=== PATIENT | male | born 1970 | race Caucasian/White ===

== ENCOUNTER 2016-07-22 08:50 | Emergency (ER) | payer SELFPAY ==
[~2016-07-22] VITALS: Ht 172.7 cm; Wt 84.5 kg
[2016-07-22 08:54] VITALS: Ht 172.7 cm; Wt 84.5 kg
[2016-07-22] MEDS ORDERED: SOD CHLORIDE 0.9% 1,000 ML IV STA (09:18)
[2016-07-22] MEDS ORDERED: ENALAPRILAT 1.25 MG INJ IV ONE (09:30)
--- NOTE | 2016-07-22 09:37 | RADRPT ---
PROCEDURE: XR Chest. CLINICAL INDICATION: Chest pain TECHNIQUE: Chest AP portable. COMPARISON: No comparison available. FINDINGS: The mediastinal structures are unremarkable. The heart is normal in size and configuration. The pu lmonary vascularity is normal. The lung saleem are unremarkable. No consolidation is identified. The pleural spaces are unremarkable. The axial skeleton is unremarkable. IMPRESSION: No active intrathoracic disease. RPTAT: HGDB .Luis Travis MD, MD Date Time Electronically viewed and signed by .Luis Travis MD, on 07/22/2016 09:37 .B/
[2016-07-22 10:18] LABS: BASOPHILS % 0.3 % (0.0-2.0); EOSINOPHILS # 0.1 10^3/ul (0.0-0.5); HEMATOCRIT 46.4 % (42.0-52.0); LYMPHOCYTES # 2.3 10^3/ul (0.8-2.9); LYMPHOCYTES % 29.7 % (15.0-51.0); MEAN CORPUSCULAR HEMOGLOBIN 31.3 pg (29.0-33.0); MEAN CORPUSCULAR HGB CONC 34.6 g/dl (32.0-37.0); MEAN CORPUSCULAR VOLUME 90.5 fl (82.0-101.0); MEAN PLATELET VOLUME 10.2 fl (7.4-10.4); MONOCYTE # 0.5 10^3/ul (0.3-0.9); MONOCYTES % 6.4 % (0.0-11.0); NEUTROPHIL # 4.9 10^3/ul (1.6-7.5); NEUTROPHILS % 62.6 % (39.0-77.0); PLATELET COUNT 220 10^3/UL (140-440); RED BLOOD COUNT 5.13 10^6/ul (4.70-6.10); RED CELL DISTRIBUTION WIDTH 12.6 % (11.5-14.5); UNCORRECTED WBC 7.9 10^3/ul (4.8-10.8); WHITE BLOOD COUNT 7.9 10^3/ul (4.8-10.8)
[2016-07-22 10:22] LABS: CONDITION 1
[2016-07-22 10:26] LABS: ALBUMIN 4.4 g/dl (3.3-4.9)
[2016-07-22 10:27] LABS: POTASSIUM 3.9 mmol/L (3.5-5.1)
[2016-07-22 10:29] LABS: ALBUMIN/GLOBULIN RATIO 1.25; BILIRUBIN,INDIRECT 0.3 mg/dl (0-1.1); BILIRUBIN,TOTAL 0.3 mg/dl (0.2-1.3); CREATININE 0.63 mg/dl (0.61-1.24); TOTAL PROTEIN 7.9 g/dl (6.1-8.1)
[2016-07-22 10:30] LABS: CALCIUM 9.2 mg/dl (8.4-10.2)
[2016-07-22 10:41] LABS: TROPONIN-I 0.052 ng/ml (0.00-0.12)
[2016-07-22] MEDS ORDERED: hydrALAzine 20 MG INJ IV ONE (11:00)
[2016-07-22] MEDS ORDERED: QUIN20TA16 PO (11:22)
[2016-07-22] MEDS ORDERED: HYDR50TA3 PO (11:22)
[2016-07-22] MEDS ORDERED: METF-382 PO (11:22)
[2016-07-22 12:25] VITALS: BP 152/103; PULSE 93; RESP 18; TEMP 98.2
--- NOTE | 2016-07-22 14:14 | ERD ---
ER Documentation Chief Complaint Date/Time DATE: 07/22/16 TIME: 14:07 Chief Complaint Hypertension and blurred vision since last night, off meds for 8 months HPI 46-year-old man here for evaluation of hypertension. He has a long history of hypertension and diabetes mellitus although he states he has not been using any medications for about 8 months. He states over the course of 1 year he has had gradually vision loss. He denies headache or neck pain, no weakness in his arms or legs, no slurred speech, no complaints of chest pain or shortness of breath. Patient denies recent travel or sick contacts. ROS All systems reviewed and are negative except as per history of present illness. Medications Home Meds Active Scripts Metformin Hcl* (Metformin Hcl*) 500 Mg Tablet, 500 MG PO BID, #60 TAB Prov:FROY DHILLON MD 07/22/16 Hydrochlorothiazide* (Hydrochlorothiazide*) 50 Mg Tab, 50 MG PO BID, #60 TAB Prov:FROY DHILLON MD 07/22/16 Quinapril Hcl (Accupril) 20 Mg Tablet, 20 MG PO DAILY, #30 TAB Prov:FROY DHILLON MD 07/22/16 Allergies Allergies: Coded Allergies: No Known Drug Allergies (Verified Allergy, Unknown, 07/22/16) PMhx/Soc Hypertension, diabetes mellitus Hx Cardiac Disorders: Yes (HTN) Hx Miscellaneous Medical Probl: Yes (DM, NON-COMPLIANT) Hx Alcohol Use: No Hx Substance Use: No Hx Tobacco Use: No Smoking Status: Current some day smoker FmHx Family History: diabetes Physical Exam Vitals Vital Signs Date Time Temp Pulse Resp B/P Pulse Ox O2 Delivery O2 Flow Rate FiO2 07/22/16 12:25 98.2 93 18 152/103 98 Room Air 07/22/16 10:00 83 179/119 07/22/16 09:36 200/127 07/22/16 08:54 98.4 104 18 232/130 98 Physical Exam GENERAL: Well-developed, well-nourished, hypertensive HEENT: Moist mucous membranes, pink conjunctiva, no cervical spine tenderness or step-off deformities, no goiter, no jaundice or icterus, extraocular movements intact without pain. No submandibular induration, and no pharyngeal erythema NEURO: Alert and oriented 3, cranial nerves II through XII intact bilaterally, pupils equal round reactive to light, no focal deficits or facial asymmetry, sensation intact distally Strength 5/5 in upper and lower extremities bilaterally CARDIAC: Regular rate and rhythm, no murmurs rubs or gallops LUNGS: Clear bilaterally no wheezing crackles or stridor ABDOMEN: Soft nontender, no guarding, no rigidity, no rebound, no psoas sign no obturator sign. Normoactive bowel sounds SKIN: Warm and dry to touch, no abrasions, contusions, or hematomas, no lacerations, no ecchymosis, no target lesions, and without ulcers EXTREMITIES: No clubbing cyanosis or edema, calves are bilaterally symmetrical, no Homans sign, no popliteal cord sign. Distal pulses equal and bilateral PSYCH: Normal affect without agitation or irritability Result Diagram: 07/22/1691907/22/1620 Results 24 hrs Laboratory Tests Test 07/22/16 09:20 07/22/16 10:15 Alanine Aminotransferase (ALT/SGPT) 28IU/L Albumin 4.4g/dl Albumin/Globulin Ratio 1.25 Alkaline Phosphatase 191IU/L Anion Gap 19 Aspartate Amino Transf (AST/SGOT) 23IU/L Basophils # 0.010^3/ul Basophils % 0.3% Blood Urea Nitrogen 15mg/dl Calcium Level 9.2mg/dl Carbon Dioxide Level 26mmol/L Chloride Level 97mmol/L Creatinine 0.63mg/dl Direct Bilirubin 0.00mg/dl Eosinophils # 0.110^3/ul Eosinophils % 1.0% Globulin 3.50g/dl Glucose Level 333mg/dl Hematocrit 46.4% Hemoglobin 16.0g/dl Indirect Bilirubin 0.3mg/dl Lipase 115U/L Lymphocytes # 2.310^3/ul Lymphocytes % 29.7% Mean Corpuscular Hemoglobin 31.3pg Mean Corpuscular Hemoglobin Concent 34.6g/dl Mean Corpuscular Volume 90.5fl Mean Platelet Volume 10.2fl Monocytes # 0.510^3/ul Monocytes % 6.4% Neutrophils # 4.910^3/ul Neutrophils % 62.6% Nucleated Red Blood Cells # 0.010^3/ul Nucleated Red Blood Cells % 0.0/100WBC Platelet Count 13706^3/UL Potassium Level 3.9mmol/L Red Blood Count 5.1310^6/ul Red Cell Distribution Width 12.6% Sodium Level 138mmol/L Total Bilirubin 0.3mg/dl Total Protein 7.9g/dl Troponin I 0.052ng/ml White Blood Count 7.910^3/ul Bedside Glucose 242mg/dL Current Medications Medications (Trade) Dose Ordered Sig/Nancy Route PRN Reason Start Time Stop Time Status Last Admin Dose Admin Sodium Chloride (NS) 1,000 ml @ 1,000 mls/hr Q1H STAT IV 07/22/16 09:18 07/22/16 10:17 DC 07/22/16 09:35 Enalaprilat (Vasotec Iv) 1.25 mg ONCE ONCE IV 07/22/16 09:30 07/22/16 09:31 DC 07/22/16 09:36 Hydralazine HCl (Apresoline) 20 mg ONCE ONCE IV 07/22/16 11:00 07/22/16 11:01 DC 07/22/16 10:41 Procedures/MDM IV line was established patient was placed on flame degreaser rhythm strip revealed a sinus rhythm at about 80 bpm with upright P and T waves. EKG performed, read by me: 72 bpm, normal sinus rhythm, normal axis, no acute ST segment changes, narrow QRS complex, with good R-wave progression in precordial leads. I administered enalapril 1.25 mg IV for hypertension 1 L normal saline intravenously. For continued severe hypertension I administered hydralazine 20 mg IV 1. One AP view of the chest performed, read by me reveals no acute infiltrates, normal mediastinum, sharp costophrenic and cardiac borders, no air under the diaphragm. Otherwise unremarkable chest x-ray. CBC was unremarkable, blood sugar was high at 333, electrolytes normal, liver function tests are normal, troponin was negative. After IV fluid therapy blood sugar fell. Systolic blood pressure fell over 30 points and diastolic blood pressure fell over 20 points which is acceptable at this time as patient has not used antihypertensive medications for about 1 year. Critical Care: Time: 40 minutes, this was time separate from other procedures. Treatments/Evaluations: Close monitoring and treatment of unstable vital signs, cardiorespiratory, and neurologic status, while maintaining tight balance of fluid, respiratory, and cardiac interventions. I recommended he follow-up with his primary care physician for outpatient management of hypertension and diabetes, I suspect he is developing diabetic and hypertensive retinopathy which has caused his gradual vision loss. He will require a formal funduscopic examination after pupil dilation by an manager small business, although this can be performed as an outpatient and was deferred here in the emergency department. Differential diagnoses considered, included but not limited to acute coronary syndrome, pulmonary embolism, aortic dissection, abdominal aortic aneurysm, sepsis, stroke, meningitis, encephalitis, pneumonia, appendicitis, cholecystitis , bowel obstruction, pyelonephritis, nephrolithiasis, cystitis, as well as metabolic, hematologic, and electrolyte abnormalities. As well as abscess, cellulitis, fractures, and dislocations. Patient feels much better at this time, and vital signs are normal, symptoms have improved. I did give strict instructions to return to the ED if symptoms continue or worsen, patient will otherwise follow-up with primary care physician. Patient understood instructions and agreed to plan. Departure Diagnosis: Primary Impression: Diabetes Diabetes mellitus type: type 2 Diabetes mellitus complication status: with ophthalmic complications Diabetes mellitus complication detail: with diabetic retinopathy Diabetic retinopathy severity: with mild nonproliferative retinopathy Diabetes mellitus macular edema: without macular edema Diabetes mellitus jail insulin use: without jail use Laterality: bilateral Qualified Code: E11.3293 - Type 2 diabetes mellitus with both eyes affected by mild nonproliferative retinopathy without macular edema, without long-term current use of insulin Additional Impressions: Hypertensive crisis Hypertensive retinopathy Laterality: bilateral Qualified Code: H35.033 - Hypertensive retinopathy, bilateral Hyperglycemia Condition: Good Patient Instructions: Diabetes and Heart Disease, Hypertension, Established, Out Of Control FROY DHILLON MD Jul 22, 2016 14:14
== END 2016-07-22 12:26 | disposition home or self-care (01) ==
LOC: E/R 08:50
DX: E11.3293 Type 2 diabetes mellitus with mild nonproliferative diabetic retinopathy without macular edema, bilateral (principal); H35.033 Hypertensive retinopathy, bilateral; I16.9 Hypertensive crisis, unspecified; F17.210 Nicotine dependence, cigarettes, uncomplicated; R07.9 Chest pain, unspecified; Z79.84 Long term (current) use of oral hypoglycemic drugs
CPT/HCPCS: 36415; 71010; 80053; 82962; 83690; 84484; 85025; 93005; 96374; 96375; 99291; J0360; J7030

== ENCOUNTER 2018-01-02 06:42 | Inpatient (IN) | END 2018-01-05 18:53 | disposition home or self-care (01) | DRG 272 ==

== ENCOUNTER 2018-06-25 22:34 | Observation (INO) | payer SELFPAY ==
[~2018-06-25] VITALS: Ht 170.2 cm; Wt 81.8 kg
[~2018-06-25 22:34] MED LIST: ASPI-831 PO; ATOR-2 PO; CARV6.2579 PO; CLOP75TA28 PO; Insulin Glargine SC; LISI-313 PO; NOVO3I SC
[2018-06-25] MEDS ORDERED: ASPIRIN 325 MG TAB PO STA (22:46)
[2018-06-25] MEDS ORDERED: NITROGLYCERIN (SL) 0.4 MG TAB SL PRN (23:00)
--- NOTE | 2018-06-25 23:12 | ERD ---
ER Documentation Chief Complaint Chief Complaint ELEVATED BP WITH HEADACHE THIS AM; STOP TAKING BP MEDS [id number] HPI 48-year-old gentleman history of diabetes, hypertension who is been noncompliant with blood pressure medications for at least 1 week. The patient presents with elevated blood pressure above 200, throbbing bilateral bitemporal gradual onset headache as well as chest discomfort. He describes the discomfort is centraliz ed, slightly left-sided with radiation to the left upper extremity. Symptoms are mild at this point. ROS All systems reviewed and are negative except as per history of present illness. Medications Home Meds Active Scripts Insulin Aspart* (Novolog Insulin Pen*) 100 Unit/Ml Soln, 7 UNIT SC WITH MEALS for 30 Days Prov:ROSETTA BALDWIN 01/05/18 [Insulin Glargine] 100 UNITS/ML SOLN No Conflict Check, 21 UNITS SC DAILY@2000 f or 30 Days Prov:ROSETTA BALDWIN 01/05/18 Aspirin (Aspirin) 81 Mg Chew, 81 MG PO DAILY, #30 TAB Prov:ROSETTA BALDWIN 01/05/18 Lisinopril* (Lisinopril*) 5 Mg Tablet, 5 MG PO DAILY, #60 TAB Prov:ROSETTA BALDWIN 01/05/18 Carvedilol* (Carvedilol*) 6.25 Mg Tablet, 6.25 MG PO BID, #120 TAB Prov:ROSETTA BALDWIN 01/05/18 Atorvastatin* (Atorvastatin*) 80 Mg Tablet, 80 MG PO DAILY, #60 TAB Prov:ROSETTA BALDWIN 01/05/18 Clopidogrel Bisulfate (Clopidogrel) 75 Mg Tablet, 75 MG PO DAILY, #60 TAB Further refills per your primary care provider (will need to be on for at least one year) Prov:ROSETTA BALDWIN 01/05/18 Allergies Allergies: Coded Allergies: No Known Drug Allergies (Verified Allergy, Unknown, 01/02/18) PMhx/Soc History of Surgery: No Anesthesia Reaction: No Hx Neurological Disorder: No Hx Respiratory Disorders: No Hx Cardiac Disorders: Yes (STEMI 01.02.17, CAD, HTN, STENTS) Hx Psychiatric Problems: No Hx Miscellaneous Medical Probl: No Hx Alcohol Use: Yes (Socially) Hx Substance Use: No Hx Tobacco Use: No Smoking Status: Unknown if ever smoked FmHx Family History: diabetes Physical Exam Vitals Vital Signs Date Temp Pulse Resp B/P (MAP) Pulse Ox O2 O2 Flow FiO2 Time Delivery Rate 06/26/18 73 18 156/108 97 Room Air 00:00 (124) 06/25/18 Nasal 1 23:30 Cannula 06/25/18 86 20 206/136 97 Room Air 23:04 (159) 06/25/18 98.1 101 19 253/147 100 22:35 (182) Physical Exam General: Well developed, well nourished, no acute distress Head: Normocephalic, atraumatic. Eyes: Pupils equally reactive, EOM intact ENT: Moist mucous membranes Neck: Supple, no lymphadenopathy Respiratory: Lungs clear bilaterally, no distress Cardiovascular: RRR, no murmurs, rubs, or gallops Abdominal: Soft, non-tender, non-distended, no peritoneal signs : Deferred MSK: No edema, no unilateral swelling, 5/5 strength Neurologic: Alert and oriented, moving all extremities, normal speech, no focal weakness, no cerebellar signs Skin: No rash Psych: Normal mood Result Diagram: 06/25/18 2331 06/25/18 2331 Results 24 hrs Laboratory Tests Test 06/25/18 23:31 White Blood Count 7.4 10^3/ul Red Blood Count 5.08 10^6/ul Hemoglobin 15.3 g/dl Hematocrit 44.5 % Mean Corpuscular Volume 87.6 fl Mean Corpuscular Hemoglobin 30.1 pg Mean Corpuscular Hemoglobin Concent 34.4 g/dl Red Cell Distribution Width 12.1 % Platelet Count 245 10^3/UL Mean Platelet Volume 11.0 fl Immature Granulocytes % 0.400 % Neutrophils % 68.4 % Lymphocytes % 23.5 % Monocytes % 6.3 % Eosinophils % 0.9 % Basophils % 0.5 % Nucleated Red Blood Cells % 0.0 /100WBC Immature Granulocytes # 0.030 10^3/ul Neutrophils # 5.1 10^3/ul Lymphocytes # 1.7 10^3/ul Monocytes # 0.5 10^3/ul Eosinophils # 0.1 10^3/ul Basophils # 0.0 10^3/ul Nucleated Red Blood Cells # 0.0 10^3/ul Sodium Level 135 mmol/L Potassium Level 3.6 mmol/L Chloride Level 99 mmol/L Carbon Dioxide Level 26 mmol/L Anion Gap 10 Blood Urea Nitrogen 12 mg/dl Creatinine 0.56 mg/dl Est Glomerular Filtrat Rate mL/min > 60 mL/min Glucose Level 225 mg/dl Calcium Level 9.2 mg/dl Troponin I < 0.012 ng/ml Current Medications Medications Dose Sig/Nancy Start Time Status Last (Trade) Ordered Route PRN Stop Time Admin Dose Reason Admin Aspirin 325 mg ONCE STAT 06/25/18 DC 06/25/18 (Aspirin) PO 22:46 23:31 06/25/18 22:48 1 tab Q5M UP TO 3 06/25/18 06/25/18 Nitroglycerin DOSES PRN 23:00 23:03 SL CHEST (Nitroglyceri PAIN n (Sl Tab) 0.4 Mg) 650 mg ONCE ONCE 06/26/18 Acetaminophen PO 00:30 (Tylenol 06/26/18 00:31 Tab) Procedures/MDM EKG, MONITORS, & DIAGNOSTIC IMAGING: EKG: I reviewed and interpreted a 12-lead EKG. Rhythm: Normal sinus rhythm ST Changes: No contiguous ST segment elevations T waves: No contiguous T wave inversions Impression: No evidence of acute cardiac ischemia Repeat EKG: EKG: I reviewed and interpreted a 12-lead EKG. Rhythm: Normal sinus rhythm ST Changes: No contiguous ST segment elevations T waves: No contiguous T wave inversions Impression: No evidence of acute cardiac ischemia Chest x-ray: I reviewed and interpreted a 1 view of the chest Mediastinum: No enlargement Cardiac silhouette: No cardiomegaly Airspace: Clear lung saleem bilaterally without evidence of pneumothorax Bones: No evidence of fracture CT brain: No acute process per radiologist read PROCEDURES: None LAB INTERPRETATION: * Negative troponin MEDICAL DECISION MAKING: The patient's history, physical exam and clinical presentation is concerning for possible cardiogenic etiology and acute coronary syndrome in the setting of hypertensive urgency versus emergency. CT of the brain would also be appropriate. Based on the patient's clinical exam and history and risk factors, I have a much lower clinical concern for pulmonary embolism, acute aortic dissection, pneumothorax, pneumonia, cardiac tamponade HEART Score: Greater than 3 MACE Rate: Upwards of 16.6% Shared Decision Making: We had a conversation regarding risk stratification, MACE rate, and the risks, benefits, alternatives of disposition planning op tions. Disposition planning: Admission ER COURSE: * Aspirin held until negative CT brain * Nitroglycerin provided. Goal mean arterial pressure decreased by 20% * Negative troponin. The patient will be admitted for further management. Mean arterial pressure has decreased by 20% CONSULTATION: None DISPOSITION PLAN: Telemetry admission for management of chest pain to rule out acute coronary syndrome, serial enzymes, risk stratification and consideration of provocative testing CONSULTATION: Accepting care team and consultations: I discussed the current laboratory data, diagnostic imaging and emergency care provided. Admitting team: Dr. Diaz Admitting team indication: Insurance directed Departure Diagnosis: Primary Impression: Hypertensive urgency Additional Impressions: Chest pain Chest pain type: unspecified Qualified Codes: R07.9 - Chest pain, unspecified Headache Headache type: unspecified Headache chronicity pattern: acute headache Intractability: not intractable Qualified Codes: R51 - Headache Condition: Stable BERNIE OBREGON MD Jun 25, 2018 23:12
[2018-06-26] VITALS (12 sets, daily range): BP systolic 109–175; BP diastolic 72–108; PULSE 65–98; RESP 15–20; Ht 170.2 cm; Wt 81.8 kg
[2018-06-26] MEDS ORDERED: ACETAMINOPHEN 325 MG TAB PO PRN (00:30)
[2018-06-26] MEDS ORDERED: ACETAMINOPHEN 325 MG TAB PO ONE (00:30)
[2018-06-26] MEDS ORDERED: ONDANSETRON 4 MG INJ IV PRN ×2 (00:30→01:30)
[2018-06-26] MEDS ORDERED: IPRATROPIUM (NEB) 0.5 MG/2.5 ML AMP NEB PRN (01:30)
[2018-06-26] MEDS ORDERED: LEVALBUTEROL (NEB) 0.63 MG/3 ML AMP HHN PRN (01:30)
[2018-06-26] MEDS ORDERED: NITROGLYCERIN (SL) 0.4 MG TAB SL PRN (01:30)
[2018-06-26] MEDS ORDERED: NACL 0.9% 3 ML SYG IV SCH (01:30)
[2018-06-26] MEDS ORDERED: HYDROCODONE/APAP (5/325) TAB PO PRN ×2 (01:30)
[2018-06-26] MEDS ORDERED: GLUCAGON 1 MG INJ IM PRN (02:30)
[2018-06-26] MEDS ORDERED: DEXTROSE 50% 50 ML SYRINGE IV PRN ×2 (02:30)
[2018-06-26] MEDS ORDERED: GLUCOSE GEL 15 GRAM TUBE BUCCAL PRN (02:30)
[2018-06-26] MEDS ORDERED: GLUCOSE GEL 15 GRAM TUBE PO PRN ×2 (02:30)
--- NOTE | 2018-06-26 02:44 | NUR ---
RN Notes Received patient from ER. Tele monitor attached, initial vitals taken. Patient SBP 175. There are no current PRN medication orders for elevated BP. Dr. Diaz contacted, awaiting orders.
[2018-06-26] MEDS: ACETAMINOPHEN 325 MG TAB PO PRN ×2 (03:29→11:28)
[2018-06-26] MEDS ORDERED: hydrALAzine 20 MG INJ IV ONE (03:30)
--- NOTE | 2018-06-26 06:35 | NUR ---
EOSS AAOx4, O2 sat 98% on RA, no SOB. Elevated BP of 175/108, hydralazine 10mg IV given x1. Recheck BP 122/76. Patient complaint of 6/10 headache pain, tylenol PRN given x1, effective. Hourly rounding done, encouraged pt. to reposition self in bed frequently. Patient stable at this time, will endorse to oncoming shift.
--- NOTE | 2018-06-26 06:44 | HP ---
Date/Time of Note Date/Time of Note DATE: 06/26/18 TIME: 06:38 Assessment/Plan VTE Prophylaxis SCD contraindicated: low risk/ambulating Pharmacological prophylaxis: NA/contraindicated Pharm contraindication: other (Patient on a dual antiplatelets and as such no anticoagulation for risk of bleeding) Lines/Catheters IV [facility] Saline Lock Urinary Cath still in place: No Assessment/Plan Assessment/Plan 1. Chest pain: Rule out ACS -Patient history of CAD with stent and STEMI, status post PCI of the RCA in December of last year. Patient also was also found to have occluded left main and LAD/circumflex, which were not intervened on -Continue telemetry monitoring -Trend troponin -Supplemental oxygen, aspirin/Plavix, statin, beta-bong. As needed nitro -Cardiology consult 2. Hypertensive urgency: BP better controlled. Adjust antihypertensive as needed 3. Headache, most likely secondary to #2. Head CT is negative 4. Type 1 diabetes: Insulin 5. Dyslipidemia: Statin Result Diagram: 06/26/18 0519 06/25/18 2331 Results 24hrs Laboratory Tests Test 06/25/18 23:31 06/26/18 05:19 White Blood Count 7.4 8.3 Red Blood Count 5.08 # 4.85 Hemoglobin 15.3 # 14.6 Hematocrit 44.5 # 42.7 Mean Corpuscular Volume 87.6 88.0 Mean Corpuscular Hemoglobin 30.1 30.1 Mean Corpuscular Hemoglobin Concent 34.4 34.2 Red Cell Distribution Width 12.1 12.5 Platelet Count 245 251 Mean Platelet Volume 11.0 H 11.4 H Immature Granulocytes % 0.400 0.500 H Neutrophils % 68.4 62.7 Lymphocytes % 23.5 28.5 Monocytes % 6.3 6.7 Eosinophils % 0.9 1.0 Basophils % 0.5 0.6 Nucleated Red Blood Cells % 0.0 0.0 Immature Granulocytes # 0.030 0.040 H Neutrophils # 5.1 5.2 Lymphocytes # 1.7 2.4 Monocytes # 0.5 0.6 Eosinophils # 0.1 0.1 Basophils # 0.0 0.1 Nucleated Red Blood Cells # 0.0 0.0 Sodium Level 135 Potassium Level 3.6 Chloride Level 99 Carbon Dioxide Level 26 Anion Gap 10 Blood Urea Nitrogen 12 Creatinine 0.56 L Est Glomerular Filtrat Rate mL/min > 60 Glucose Level 225 H Calcium Level 9.2 Troponin I < 0.012 HPI/ROS Admit Date/Time Admit Date/Time Jun 26, 2018 at 00:24 Hx of Present Illness This is a 48-year-old male with a history of hypertension, type 1 diabetes, CAD with stent, STEMI in December of last year. Patient presented to ER complaining of diffuse headache and chest pain. Chest pain is in the mid chest and also slightly left-sided and described as tightness. Denies shortness of breath. He has not been taking any of his medications including Plavix, aspirin, blood pressure medications and insulin for at least a month. He said "they cut my medical". When he presented to ER, blood pressure was 253/147 with a heart rate of 101. First troponin negative and EKG without ST elevation or depression. Patient had a STEMI in December of last year. He is status post PCI of RCA. Patient also has left main and LAD/circumflex occlusion, which were deferred for a later time. He was initially considered for CABG, but according to cardiology notes deemed not a candidate for it and as such intervention as stated above were carried on. PMH/Family/Social Past Medical History Medical History: other (See HPI) Medications Current Medications Ondansetron HCl (Zofran Inj) 4 mg ER BRIDGE PRN IV NAUSEA AND/OR VOMITING; Start 06/26/18 at 00:30; Stop 06/27/18 at 00:29 Acetaminophen (Tylenol Tab) 650 mg ER BRIDGE PRN PO MILD PAIN(1-3)OR ELEVATED TEMP; Start 06/26/18 at 00:30; Stop 06/27/18 at 00:29 IV Flush (NS 3 ml) 3 ml PER PROTOCOL IV ; Start 06/26/18 at 01:30 Ondansetron HCl (Zofran Inj) 4 mg Q6H PRN IV NAUSEA AND/OR VOMITING; Start 06/26/18 at 01:30 Nitroglycerin (Nitroglycerin (Sl Tab) 0.4 Mg) 1 tab Q5M PRN SL CHEST PAIN; Start 06/26/18 at 01:30 Acetaminophen (Tylenol Tab) 650 mg Q6H PRN PO PAIN LEVEL 1-3 OR FEVER Last administered on 06/26/18at 03:29; Admin Dose 650 MG; Start 06/26/18 at 01:30 Acetaminophen/ Hydrocodone Bitart (Muir (5/325)) 1 tab Q6H PRN PO PAIN LEVEL 4-6; Start 06/26/18 at 01:30 Acetaminophen/ Hydrocodone Bitart (Muir (5/325)) 2 tab Q6H PRN PO PAIN LEVEL 7-10; Start 06/26/18 at 01:30 Ipratropium Rosamond (Atrovent 0.02% (Neb)) 0.5 mg Q2H RESP THERAPY PRN NEB SHORTNESS OF BREATH; Start 06/26/18 at 01:30 Aspirin (Aspirin) 81 mg DAILY PO ; Start 06/26/18 at 09:00 Atorvastatin Calcium (Lipitor) 80 mg DAILY PO ; Start 06/26/18 at 09:00 Carvedilol (Coreg) 6.25 mg BID PO ; Start 06/26/18 at 09:00 Clopidogrel Bisulfate (plaVIX) 75 mg DAILY PO ; Start 06/26/18 at 09:00 Insulin Aspart (Novolog Insulin Pen) 7 unit WITH MEALS SC ; Start 06/26/18 at 07:55 Lisinopril (Zestril) 5 mg DAILY PO ; Start 06/26/18 at 09:00 Insulin Glargine (Lantus) 21 units 2000 SC ; Start 06/26/18 at 20:00 Levalbuterol (Xopenex Neb) 0.63 mg Q2H RESP THERAPY PRN HHN sob/wheezing; Start 06/26/18 at 01:30 Miscellaneous Information 1 ea NOTE XX ; Start 06/26/18 at 02:30 Glucose (Glutose) 15 gm Q15M PRN PO DECREASED GLUCOSE; Start 06/26/18 at 02:30 Glucose (Glutose) 22.5 gm Q15M PRN PO DECREASED GLUCOSE; Start 06/26/18 at 02:30 Dextrose (D50w Syringe) 25 ml Q15M PRN IV DECREASED GLUCOSE; Start 06/26/18 at 02:30 Dextrose (D50w Syringe) 50 ml Q15M PRN IV DECREASED GLUCOSE; Start 06/26/18 at 02:30 Glucagon (Glucagen) 1 mg Q15M PRN IM DECREASED GLUCOSE; Start 06/26/18 at 02:30 Glucose (Glutose) 15 gm Q15M PRN BUCCAL DECREASED GLUCOSE; Start 06/26/18 at 02:30 Coded Allergies: No Known Drug Allergies (Verified Allergy, Unknown, 01/02/18) Past Surgical History Past Surgical Hx: other (Cardiac stent) Family History Significant Family History: no pertinent family hx, other Social History Alcohol Use: other Smoking Status: Never smoker Drug Use: none Exam/Review of Systems Vital Signs Vitals Vital Signs Date Temp Pulse Resp B/P (MAP) Pulse Ox O2 O2 Flow FiO2 Time Delivery Rate 06/26/18 97.7 80 19 122/76 98 04:45 (91) 06/26/18 Room Air 02:12 06/25/18 1 23:30 Intake and Output 06/25/18 06/25/18 06/26/18 1515:00 23:00 07:00 IntakeIntake Total 200 ml BalanceBalance 200 ml Exam Constitutional: other (No acute distress) Head: normocephalic, atraumatic Eyes: EOMI, PERRL Respiratory: clear to auscultation, normal air movement Cardiovascular: regular rate and rhythm, nl pulses Gastrointestinal: soft, non-tender Extremities: normal pulses VIKKI FISHER MD Jun 26, 2018 06:44
[2018-06-26] MEDS: ASPIRIN 81 MG TAB PO SCH (08:16)
[2018-06-26] MEDS: ATORVASTATIN 80 MG TAB PO SCH (08:16)
[2018-06-26] MEDS: CLOPIDOGREL 75 MG TAB PO SCH (08:17)
[2018-06-26] MEDS: INSULIN ASPART [NOVOLOG] 3 ML PEN SC SCH ×6 (08:25→20:29)
[2018-06-26] MEDS ORDERED: LISINOPRIL 5 MG TAB PO SCH ×2 (09:00→10:30)
--- NOTE | 2018-06-26 09:26 | PN ---
Date/Time of Note Date/Time of Note DATE: 06/26/18 TIME: 09:25 Assessment/Plan VTE Prophylaxis Risk score (from Nsg)>0 risk: 1 SCD applied (from Nsg): Yes Pharmacological prophylaxis: LMWH Lines/Catheters IV Catheter Type (from Nrsg): Saline Lock Urinary Cath still in place: No Assessment/Plan Hospital Course SUBJECTIVE: Denies any chest pain at this time. Complains of headache. OBJECTIVE: Physical Exam General: Adequately build 48 year-old male lying in bed in no apparent distress. HEENT: Normocephalic, atraumatic. Eyes: Anicteric sclerae, conjunctivae clear. ENT: Nasal septum midline, oral mucosa moist. Neck supple. Respiratory: Bilaterally clear breath sounds. No use of accessory muscles of respiration. No adventitious breath sounds. Cardiovascular: S1, S2 heard. Regular rate and rhythm. Abdomen: Soft, nontender, and nondistended. Bowel sounds positive in all 4 quadrants. Genitourinary: Deferred. Extremities: No cyanosis, no clubbing, no edema. Peripheral pulses palpable. Neurologic: Cranial nerves II through XII grossly intact. The patient is awake, alert, and oriented. Skin: Normal skin turgor. No skin rashes. Labs & Vitals per chart ASSESSMENT & PLAN This is a 48-year-old male with comorbidities including CAD with multivessel disease not a candidate for CABG, status post coronary artery stenting to RCA in December 2017, diabetes mellitus type 2, dyslipidemia, and hypertension who came to the emergency room with chief complaint of chest pain and palpitations with radiation of pain to the left and dyspnea on exertion, who was admitted to inpatient setting for further treatment and evaluation. The patient was not taking his aspirin and Plavix for the past 3 weeks because he ran out of in [facility]. 1. Chest pain. -Known history of CAD. -Will rule out ACS. -Continue aspirin plus Plavix. -Obtain cardiology evaluation. 2. CAD. -Known history of multivessel CAD. -Not a candidate for CABG -Status post RCA stenting. -Continue aspirin and Plavix. 3. Hypertensive urgency. -Currently blood pressure control. -Continue antihypertensives. 4. Diabetes mellitus. -Has been off insulin for the past 4 months. -Hemoglobin A1c 7.8. -Continue sliding scale insulin along with pre-meal insulin and basal insulin. 5. Fluids, electrolytes, and nutrition. -Carbohydrate controlled diet. 6. DVT prophylaxis. -Continue subcutaneous Lovenox. 7. Plan. -Continue dual antiplatelet therapy. -Await cardiology evaluation. The patient was seen in collaboration with Dr. Ortiz. Result Diagram: 06/26/1851806/26/18518 Results 24hrs Laboratory Tests Test 06/25/18 23:31 06/26/18 05:18 06/26/18 05:19 06/26/18 07:51 White Blood Count 7.4 8.3 Red Blood Count 5.08 # 4.85 Hemoglobin 15.3 # 14.6 Hematocrit 44.5 # 42.7 Mean Corpuscular 87.6 88.0 Volume Mean Corpuscular 30.1 30.1 Hemoglobin Mean Corpuscular 34.4 34.2 Hemoglobin Concent Red Cell 12.1 12.5 Distribution Width Platelet Count 245 251 Mean Platelet Volume 11.0 H 11.4 H Immature 0.400 0.500 H Granulocytes % Neutrophils % 68.4 62.7 Lymphocytes % 23.5 28.5 Monocytes % 6.3 6.7 Eosinophils % 0.9 1.0 Basophils % 0.5 0.6 Nucleated Red Blood 0.0 0.0 Cells % Immature 0.030 0.040 H Granulocytes # Neutrophils # 5.1 5.2 Lymphocytes # 1.7 2.4 Monocytes # 0.5 0.6 Eosinophils # 0.1 0.1 Basophils # 0.0 0.1 Nucleated Red Blood 0.0 0.0 Cells # Sodium Level 135 136 Potassium Level 3.6 3.6 Chloride Level 99 100 Carbon Dioxide Level 26 27 Anion Gap 10 9 Blood Urea Nitrogen 12 12 Creatinine 0.56 L 0.64 Est Glomerular > 60 > 60 Filtrat Rate mL/min Glucose Level 225 H 163 Calcium Level 9.2 9.0 Troponin I < 0.012 < 0.012 Creatine Kinase 64 Creatine Kinase 1.5 Index Creatinine Kinase MB 0.93 (Mass) Hemoglobin A1c 7.8 H Magnesium Level 1.9 Total Bilirubin 0.2 Direct Bilirubin 0.00 Indirect Bilirubin 0.2 Aspartate Amino 17 Transf (AST/SGOT) Alanine 18 Aminotransferase (AL T/SGPT) Alkaline Phosphatase 82 Total Protein 7.1 Albumin 3.9 Globulin 3.20 Albumin/Globulin 1.21 Ratio Triglycerides Level 162 H Cholesterol Level 203 H LDL Cholesterol, 140 Calculated HDL Cholesterol 31 Cholesterol/HDL 6.5 Ratio Bedside Glucose 159 Exam/Review of Systems Vital Signs Vitals Vital Signs Date Temp Pulse Resp B/P (MAP) Pulse Ox O2 O2 Flow FiO2 Time Delivery Rate 06/26/18 76 08:02 06/26/18 98.0 18 171/101 96 07:12 (124) 06/26/18 Room Air 02:12 06/25/18 1 23:30 Intake and Output 06/25/18 06/25/18 06/26/18 1515:00 23:00 07:00 IntakeIntake Total 200 ml BalanceBalance 200 ml Medications Medications Current Medications Ondansetron HCl (Zofran Inj) 4 mg ER BRIDGE PRN IV NAUSEA AND/OR VOMITING; Start 06/26/18 at 00:30; Stop 06/27/18 at 00:29 Acetaminophen (Tylenol Tab) 650 mg ER BRIDGE PRN PO MILD PAIN(1-3)OR ELEVATED TEMP; Start 06/26/18 at 00:30; Stop 06/27/18 at 00:29 IV Flush (NS 3 ml) 3 ml PER PROTOCOL IV ; Start 06/26/18 at 01:30 Ondansetron HCl (Zofran Inj) 4 mg Q6H PRN IV NAUSEA AND/OR VOMITING; Start 06/26/18 at 01:30 Nitroglycerin (Nitroglycerin (Sl Tab) 0.4 Mg) 1 tab Q5M PRN SL CHEST PAIN; Start 06/26/18 at 01:30 Acetaminophen (Tylenol Tab) 650 mg Q6H PRN PO PAIN LEVEL 1-3 OR FEVER Last administered on 06/26/18at 03:29; Admin Dose 650 MG; Start 06/26/18 at 01:30 Acetaminophen/ Hydrocodone Bitart ([place] (5/325)) 1 tab Q6H PRN PO PAIN LEVEL 4-6; Start 06/26/18 at 01:30 Acetaminophen/ Hydrocodone Bitart ([place] (5/325)) 2 tab Q6H PRN PO PAIN LEVEL 7-10; Start 06/26/18 at 01:30 Ipratropium Maynard (Atrovent 0.02% (Neb)) 0.5 mg Q2H RESP THERAPY PRN NEB SHORTNESS OF BREATH; Start 06/26/18 at 01:30 Aspirin (Aspirin) 81 mg DAILY PO Last administered on 06/26/18at 08:16; Admin Dose 81 MG; Start 06/26/18 at 09:00 Atorvastatin Calcium (Lipitor) 80 mg DAILY PO Last administered on 06/26/18at 08:16; Admin Dose 80 MG; Start 06/26/18 at 09:00 Carvedilol (Coreg) 6.25 mg BID PO Last administered on 06/26/18at 08:17; Admin Dose 6.25 MG; Start 06/26/18 at 09:00 Clopidogrel Bisulfate (plaVIX) 75 mg DAILY PO Last administered on 06/26/18at 08:17; Admin Dose 75 MG; Start 06/26/18 at 09:00 Insulin Aspart (Novolog Insulin Pen) 7 unit WITH MEALS SC Last administered on 06/26/18at 08:25; Admin Dose 7 UNIT; Start 06/26/18 at 07:55 Lisinopril (Zestril) 5 mg DAILY PO Last administered on 06/26/18at 08:17; Admin Dose 5 MG; Start 06/26/18 at 09:00 Insulin Glargine (Lantus) 21 units 2000 SC ; Start 06/26/18 at 20:00 Levalbuterol (Xopenex Neb) 0.63 mg Q2H RESP THERAPY PRN HHN sob/wheezing; Start 06/26/18 at 01:30 Miscellaneous Information 1 ea NOTE XX ; Start 06/26/18 at 02:30 Glucose (Glutose) 15 gm Q15M PRN PO DECREASED GLUCOSE; Start 06/26/18 at 02:30 Glucose (Glutose) 22.5 gm Q15M PRN PO DECREASED GLUCOSE; Start 06/26/18 at 02:30 Dextrose (D50w Syringe) 25 ml Q15M PRN IV DECREASED GLUCOSE; Start 06/26/18 at 02:30 Dextrose (D50w Syringe) 50 ml Q15M PRN IV DECREASED GLUCOSE; Start 06/26/18 at 02:30 Glucagon (Glucagen) 1 mg Q15M PRN IM DECREASED GLUCOSE; Start 06/26/18 at 02:30 Glucose (Glutose) 15 gm Q15M PRN BUCCAL DECREASED GLUCOSE; Start 06/26/18 at 02:30 MONTY HENAO NP Jun 26, 2018 09:26
[2018-06-26] MEDS ORDERED: LISINOPRIL 10 MG TAB PO ONE (10:00)
--- NOTE | 2018-06-26 10:28 | CONS ---
Date/Time of Note Date/Time of Note DATE: 06/26/18 TIME: 10:14 Assessment/Plan Assessment/Plan Hospital Course Chest pain: due to hypertensive emergency and known unvascularized obstructive CAD. Troponins negative and no acute EKG changes. No symptoms since BP control. Even though he has not been taking his plavix, no concern for stent occlusion without active symptoms, EKG changes, and negative troponins. No benefit of any further testing such as Lexiscan, cardiac CT or cath Hypertensive emergency: ran out of meds. Now better controlled CAD: Staged PCI of RCA 01/02 as pt was not a surgical candidate. Has residual distal LM as well as MARK UP DESIGNER of LAD and MARK UP DESIGNER of Cx which was attempted to be revascularized at [facility] but unsuccessful. H/o Inferior FL: s/p POBA of RCA on presentation then PCI of PLV, distal and mid RCA as pt not a candidate for CABG Ischemic cardiomyopathy: EF 50% DM HTN HL -monitor overnight and likely d/c in am if no symptoms. -I spoke with the geriatric social work professor to help pt with insurance and meds -ASA 81mg lifelong -plavix 75mg daily (I will reload with 300mg) -coreg 6.25mg BID -increase to lisinopril 20mg -lipitor 80 mg Result Diagram: 06/26/1851806/26/18518 Results 24hrs Laboratory Tests Test 06/25/18 23:31 06/26/18 05:18 06/26/18 05:19 06/26/18 07:51 White Blood Count 7.4 8.3 Red Blood Count 5.08 # 4.85 Hemoglobin 15.3 # 14.6 Hematocrit 44.5 # 42.7 Mean Corpuscular 87.6 88.0 Volume Mean Corpuscular 30.1 30.1 Hemoglobin Mean Corpuscular 34.4 34.2 Hemoglobin Concent Red Cell 12.1 12.5 Distribution Width Platelet Count 245 251 Mean Platelet Volume 11.0 H 11.4 H Immature 0.400 0.500 H Granulocytes % Neutrophils % 68.4 62.7 Lymphocytes % 23.5 28.5 Monocytes % 6.3 6.7 Eosinophils % 0.9 1.0 Basophils % 0.5 0.6 Nucleated Red Blood 0.0 0.0 Cells % Immature 0.030 0.040 H Granulocytes # Neutrophils # 5.1 5.2 Lymphocytes # 1.7 2.4 Monocytes # 0.5 0.6 Eosinophils # 0.1 0.1 Basophils # 0.0 0.1 Nucleated Red Blood 0.0 0.0 Cells # Sodium Level 135 136 Potassium Level 3.6 3.6 Chloride Level 99 100 Carbon Dioxide Level 26 27 Anion Gap 10 9 Blood Urea Nitrogen 12 12 Creatinine 0.56 L 0.64 Est Glomerular > 60 > 60 Filtrat Rate mL/min Glucose Level 225 H 163 Calcium Level 9.2 9.0 Troponin I < 0.012 < 0.012 Creatine Kinase 64 Creatine Kinase 1.5 Index Creatinine Kinase MB 0.93 (Mass) Hemoglobin A1c 7.8 H Magnesium Level 1.9 Total Bilirubin 0.2 Direct Bilirubin 0.00 Indirect Bilirubin 0.2 Aspartate Amino 17 Transf (AST/SGOT) Alanine 18 Aminotransferase (AL T/SGPT) Alkaline Phosphatase 82 Total Protein 7.1 Albumin 3.9 Globulin 3.20 Albumin/Globulin 1.21 Ratio Triglycerides Level 162 H Cholesterol Level 203 H LDL Cholesterol, 140 Calculated HDL Cholesterol 31 Cholesterol/HDL 6.5 Ratio Bedside Glucose 159 Consultation Date/Type/Reason Admit Date/Time Jun 26, 2018 at 00:24 Date of Consultation: Jun 26, 2018 Type of Consult Cardiology Reason for Consultation chest pain Requesting Provider: MONTY HENAO NP Hx of Present Illness 48 yo M well known to me from prior hospitalization with a h/o inferior STEMI 01/02/2018, CAD with residual left main and occluded LAD/Cx, HTN, DM, HL, who presented with chest pain and headache. He was found to have a BP of 253/147. Last admission he was evaluated for CABG after initial POBA of his RCA for STEMI but due to poor targets he was thought to be a bad candidate. He then had PCI of his RCA and was discharged to have follow up at a tertiary center for high risk PCI with possible mechanical support. Since then he established [facility] and was seen at [facility] and ultimately transferred to [facility] for attempted PCI which per the pt was not successful. Since then he ran out of medications and lost his insurance. Yesterday he started to have chest pressure and a headache. Since admission, the chest pain has resolved but he has a mild headache still. No SOB, orthopnea, PND, edema. Trops negative and no acute EKG changes. per hPI Past Medical History per hPI Medical History: other (See HPI) Medications Current Medications Ondansetron HCl (Zofran Inj) 4 mg ER BRIDGE PRN IV NAUSEA AND/OR VOMITING; Start 06/26/18 at 00:30; Stop 06/27/18 at 00:29 IV Flush (NS 3 ml) 3 ml PER PROTOCOL IV ; Start 06/26/18 at 01:30 Ondansetron HCl (Zofran Inj) 4 mg Q6H PRN IV NAUSEA AND/OR VOMITING; Start 06/26/18 at 01:30 Nitroglycerin (Nitroglycerin (Sl Tab) 0.4 Mg) 1 tab Q5M PRN SL CHEST PAIN; Start 06/26/18 at 01:30 Acetaminophen (Tylenol Tab) 650 mg Q6H PRN PO PAIN LEVEL 1-3 OR FEVER Last administered on 06/26/18at 03:29; Admin Dose 650 MG; Start 06/26/18 at 01:30 Acetaminophen/ Hydrocodone Bitart ([place] (5/325)) 1 tab Q6H PRN PO PAIN LEVEL 4-6; Start 06/26/18 at 01:30 Acetaminophen/ Hydrocodone Bitart ([place] (5/325)) 2 tab Q6H PRN PO PAIN LEVEL 7-10; Start 06/26/18 at 01:30 Ipratropium [place] (Atrovent 0.02% (Neb)) 0.5 mg Q2H RESP THERAPY PRN NEB SHORTNESS OF BREATH; Start 06/26/18 at 01:30 Aspirin (Aspirin) 81 mg DAILY PO Last administered on 06/26/18at 08:16; Admin Dose 81 MG; Start 06/26/18 at 09:00 Atorvastatin Calcium (Lipitor) 80 mg DAILY PO Last administered on 06/26/18at 08:16; Admin Dose 80 MG; Start 06/26/18 at 09:00 Carvedilol (Coreg) 6.25 mg BID PO Last administered on 06/26/18at 08:17; Admin Dose 6.25 MG; Start 06/26/18 at 09:00 Clopidogrel Bisulfate (plaVIX) 75 mg DAILY PO Last administered on 06/26/18at 08:17; Admin Dose 75 MG; Start 06/26/18 at 09:00 Insulin Aspart (Novolog Insulin Pen) 7 unit WITH MEALS SC Last administered on 06/26/18at 08:25; Admin Dose 7 UNIT; Start 06/26/18 at 07:55 Insulin Glargine (Lantus) 21 units 2000 SC ; Start 06/26/18 at 20:00 Levalbuterol (Xopenex Neb) 0.63 mg Q2H RESP THERAPY PRN HHN sob/wheezing; Start 06/26/18 at 01:30 Miscellaneous Information 1 ea NOTE XX ; Start 06/26/18 at 02:30 Glucose (Glutose) 15 gm Q15M PRN PO DECREASED GLUCOSE; Start 06/26/18 at 02:30 Glucose (Glutose) 22.5 gm Q15M PRN PO DECREASED GLUCOSE; Start 06/26/18 at 02:30 Dextrose (D50w Syringe) 25 ml Q15M PRN IV DECREASED GLUCOSE; Start 06/26/18 at 02:30 Dextrose (D50w Syringe) 50 ml Q15M PRN IV DECREASED GLUCOSE; Start 06/26/18 at 02:30 Glucagon (Glucagen) 1 mg Q15M PRN IM DECREASED GLUCOSE; Start 06/26/18 at 02:30 Glucose (Glutose) 15 gm Q15M PRN BUCCAL DECREASED GLUCOSE; Start 06/26/18 at 02:30 Insulin Aspart (Novolog Insulin Pen) NOVOLOG *MILD* ALGORITHM WITH MEALS BEDTIME SC ; Start 06/26/18 at 11:50 Enoxaparin Sodium (Lovenox) 40 mg DAILY SC ; Start 06/27/18 at 09:00 Lisinopril (Zestril) 15 mg ONCE PO ; Start 06/26/18 at 10:30; Stop 06/26/18 at 10:31 Lisinopril (Zestril) 20 mg DAILY PO ; Start 06/27/18 at 09:00 Allergies: Coded Allergies: No Known Drug Allergies (Verified Allergy, Unknown, 01/02/18) Past Surgical History Past Surgical Hx: other (Cardiac stent) Social History Alcohol Use: other Smoking Status: Never smoker Drug Use: none Exam/Review of Systems Vital Signs Vitals Vital Signs Date Temp Pulse Resp B/P (MAP) Pulse Ox O2 O2 Flow FiO2 Time Delivery Rate 06/26/18 76 08:02 06/26/18 98.0 18 171/101 96 07:12 (124) 06/26/18 Room Air 02:12 06/25/18 1 23:30 Intake and Output 06/25/18 06/25/18 06/26/18 1515:00 23:00 07:00 IntakeIntake Total 200 ml BalanceBalance 200 ml Exam Constitutional: alert, oriented Psych: no complaints, nl mood/affect Head: normocephalic, atraumatic Eyes: nl conjunctiva Neck: supple; No jvd Respiratory: clear to auscultation; No crackles/rales Cardiovascular: regular rate and rhythm; No edema, No systolic murmur Gastrointestinal: soft, non-tender; No distended Extremities: normal pulses Neurological: nl mental status, nl speech Skin: No rash or lesions Additional Comments EKG: sinus, inferior q waves due to old FL Medications Medications Current Medications Ondansetron HCl (Zofran Inj) 4 mg ER BRIDGE PRN IV NAUSEA AND/OR VOMITING; Start 06/26/18 at 00:30; Stop 06/27/18 at 00:29 IV Flush (NS 3 ml) 3 ml PER PROTOCOL IV ; Start 06/26/18 at 01:30 Ondansetron HCl (Zofran Inj) 4 mg Q6H PRN IV NAUSEA AND/OR VOMITING; Start 06/26/18 at 01:30 Nitroglycerin (Nitroglycerin (Sl Tab) 0.4 Mg) 1 tab Q5M PRN SL CHEST PAIN; Start 06/26/18 at 01:30 Acetaminophen (Tylenol Tab) 650 mg Q6H PRN PO PAIN LEVEL 1-3 OR FEVER Last administered on 06/26/18at 03:29; Admin Dose 650 MG; Start 06/26/18 at 01:30 Acetaminophen/ Hydrocodone Bitart ([place] (5/325)) 1 tab Q6H PRN PO PAIN LEVEL 4-6; Start 06/26/18 at 01:30 Acetaminophen/ Hydrocodone Bitart ([place] (5/325)) 2 tab Q6H PRN PO PAIN LEVEL 7-10; Start 06/26/18 at 01:30 Ipratropium [place] (Atrovent 0.02% (Neb)) 0.5 mg Q2H RESP THERAPY PRN NEB SHORTNESS OF BREATH; Start 06/26/18 at 01:30 Aspirin (Aspirin) 81 mg DAILY PO Last administered on 06/26/18at 08:16; Admin Dose 81 MG; Start 06/26/18 at 09:00 Atorvastatin Calcium (Lipitor) 80 mg DAILY PO Last administered on 06/26/18at 08:16; Admin Dose 80 MG; Start 06/26/18 at 09:00 Carvedilol (Coreg) 6.25 mg BID PO Last administered on 06/26/18at 08:17; Admin Dose 6.25 MG; Start 06/26/18 at 09:00 Clopidogrel Bisulfate (plaVIX) 75 mg DAILY PO Last administered on 06/26/18at 08:17; Admin Dose 75 MG; Start 06/26/18 at 09:00 Insulin Aspart (Novolog Insulin Pen) 7 unit WITH MEALS SC Last administered on 06/26/18at 08:25; Admin Dose 7 UNIT; Start 06/26/18 at 07:55 Insulin Glargine (Lantus) 21 units 2000 SC ; Start 06/26/18 at 20:00 Levalbuterol (Xopenex Neb) 0.63 mg Q2H RESP THERAPY PRN HHN sob/wheezing; Start 06/26/18 at 01:30 Miscellaneous Information 1 ea NOTE XX ; Start 06/26/18 at 02:30 Glucose (Glutose) 15 gm Q15M PRN PO DECREASED GLUCOSE; Start 06/26/18 at 02:30 Glucose (Glutose) 22.5 gm Q15M PRN PO DECREASED GLUCOSE; Start 06/26/18 at 02:30 Dextrose (D50w Syringe) 25 ml Q15M PRN IV DECREASED GLUCOSE; Start 06/26/18 at 02:30 Dextrose (D50w Syringe) 50 ml Q15M PRN IV DECREASED GLUCOSE; Start 06/26/18 at 02:30 Glucagon (Glucagen) 1 mg Q15M PRN IM DECREASED GLUCOSE; Start 06/26/18 at 02:30 Glucose (Glutose) 15 gm Q15M PRN BUCCAL DECREASED GLUCOSE; Start 06/26/18 at 02:30 Insulin Aspart (Novolog Insulin Pen) NOVOLOG *MILD* ALGORITHM WITH MEALS BEDTIME SC ; Start 06/26/18 at 11:50 Enoxaparin Sodium (Lovenox) 40 mg DAILY SC ; Start 06/27/18 at 09:00 Lisinopril (Zestril) 15 mg ONCE PO ; Start 06/26/18 at 10:30; Stop 06/26/18 at 10:31 Lisinopril (Zestril) 20 mg DAILY PO ; Start 06/27/18 at 09:00 ZOLTAN QUIJANO Jun 26, 2018 10:28
[2018-06-26] MEDS ORDERED: CLOPIDOGREL 75 MG TAB PO ONE (10:30)
--- NOTE | 2018-06-26 13:26 | NUR ---
CM notes: This leader writer contacted Minor of [facility] Medi-brian/Medicare patient assistance x [phone] as the patient's Medical apparently is no longer valid, per Minor Medi-brian is not valid and the [facility] office is closed today due to [place] Day, Minor spoke with the patient and asked him to obtain [facility] stubs for possible qualifier to ruben program through [facility], this leader writer will f/u tomorrow. [place] Te[place]eira, LORRICM x [phone]
--- NOTE | 2018-06-26 18:29 | NUR ---
EOSS: NO SIGNIFICANT CHANGE OF CONDITION, CONTINUE WITH CURRENT PLAN OF CARE
[2018-06-26] MEDS ORDERED: INSULIN GLARGINE [LANTus] (100 UNITS/ML) SYG SC SCH (20:00)
[2018-06-27] VITALS: PULSE 68
[2018-06-27 04:00] VITALS: BP 100/72; PULSE 69; PULSE 72; RESP 18
[2018-06-27 07:13] VITALS: BP 113/61; PULSE 67; RESP 18
[2018-06-27] MEDS: INSULIN ASPART [NOVOLOG] 3 ML PEN SC SCH ×4 (07:52→12:07)
[2018-06-27 08:01] VITALS: PULSE 62
[2018-06-27] MEDS: CLOPIDOGREL 75 MG TAB PO SCH (08:16)
[2018-06-27] MEDS: ASPIRIN 81 MG TAB PO SCH (08:16)
[2018-06-27] MEDS: ATORVASTATIN 80 MG TAB PO SCH (08:16)
[2018-06-27] MEDS ORDERED: LISINOPRIL 5 MG TAB PO SCH (09:00)
[2018-06-27] MEDS ORDERED: LISINOPRIL 20 MG TAB PO SCH (09:00)
[2018-06-27] MEDS ORDERED: ENOXAPARIN 40 MG/0.4 ML SYG SC SCH (09:00)
[2018-06-27] MEDS ORDERED: LISI-471 PO (11:02)
[2018-06-27] MEDS ORDERED: METF-849 PO (11:02)
[2018-06-27] MEDS ORDERED: Work Note (11:05)
--- NOTE | 2018-06-27 11:07 | PDOCDIS ---
Discharge Instructions CONDITION [id number] Patient Condition: [id number] Stable HOME CARE INSTRUCTIONS: [id number] Diet Instructions: [id number] Low Fat /Cholesterol [id number] Special Diet: [id number] Carbohydrate controlled FOLLOW UP/APPOINTMENTS Follow-up Plan Mendoza Phan MD Specialty: Internal Medicine Office Address: [address] [place] [address] [place], [place] [id number] Office OTHER ORDERS: Other Orders: 1. Take medications as per prescription. Never stop taking medications, specifically aspirin and Plavix. 2. Take a low-cholesterol, low carbohydrate diet. 3. Resume activities as tolerated. 4. Follow-up with your primary care physician in 2 weeks. If you do not have a primary care physician, please call Dr. Mendoza Phan's office. 5. Please go to the nearest emergency room if you have any chest pain. MONTY HENAO NP Jun 27, 2018 11:07
--- NOTE | 2018-06-27 11:21 | DS ---
Date/Time of Note Date/Time of Note DATE: 06/27/18 TIME: 11:16 Discharge Summary Admission/Discharge Info Admit Date/Time Jun 26, 2018 at 00:24 Discharge Date/Time Discharge Diagnosis 1. Chest pain. 2. CAD. Known history of multivessel CAD. Not a candidate for CABG. Status post RCA stenting. 3. Hypertensive urgency. 4. Diabetes mellitus type 2. Hemoglobin A1c 7.8. 5. Dyslipidemia. Consults 1. Hoang Hilario MD, Cardiology. Procedures Brain CT IMPRESSION: No acute intracranial pathology. CXR IMPRESSION: No evidence of acute cardiopulmonary disease. Hx of Present Illness This is a 48-year-old male with comorbidities including CAD with multivessel disease not a candidate for CABG, status post coronary artery stenting to RCA in December 2017, diabetes mellitus type 2, dyslipidemia, and hypertension who came to the emergency room with chief complaint of chest pain and palpitations with radiation of pain to the left arm and dyspnea on exertion, who was admitted to inpatient setting for further treatment and evaluation. The patient was not taking his aspirin and Plavix for the past 3 weeks because he ran out of insurance. Hospital Course The patient was resumed on aspirin and Plavix. A cardiology consult was obtained. Serial troponins were obtained. The patient was seen and evaluated by cardiology. Cardiology reinforced the importance of being compliant with medications. A social work specialist consult was obtained for providing the patient with the resources for obtaining necessary medications. The patient's antihypertensive dosing was increased with improvement in the patient's blood pressure. The patient was maintained on high-dose statins. The patient was cleared by cardiology to be discharged home, provided the patient has resources for being compliant with the necessary medications. The patient has underlying dyslipidemia. He was maintained on statins for the same. The patient has history of diabetes mellitus. The patient's hemoglobin A1c was found to be 7.8. The patient was not taking any insulin in the recent past because of loss of insurance. The patient was started on low-dose metformin versus high-dose metformin that gave him gastrointestinal symptoms in the past. The patient had a stable hospital course. The patient will be discharged home. The patient denied any complaints at the time of discharge. Discharge Instructions 1. Take medications as per prescription. Never stop taking medications, specifically aspirin and Plavix. 2. Take a low-cholesterol, low carbohydrate diet. 3. Resume activities as tolerated. 4. Follow-up with your primary care physician in 2 weeks. If you do not have a primary care physician, please call Dr. Mendoza Phan's office. 5. Please go to the nearest emergency room if you have any chest pain. The patient verbalized understanding of his discharge instructions. At this time I would like to thank Dr. Hilario for seeing the patient and providing clinical recommendations. The patient was seen in collaboration with Dr. Ortiz. Home Meds Active Scripts [Work Note] No Conflict Check This is to certify that this patient was hospitalized at [facility] from 06/25/2018 to 06/27/2018. He can return back to work on 06/28/2018 with no restrictions. Prov:MONTY HENAO NP 06/27/18 Metformin* (Glucophage*) 500 Mg Tab, 500 MG PO BID WITH MEALS, #60 TAB Prov:MONTY HENAO NP 06/27/18 Lisinopril* (Lisinopril*) 20 Mg Tablet, 20 MG PO DAILY, #30 TAB Prov:MONTY HENAO CUT [employer]ER 06/27/18 Aspirin (Aspirin) 81 Mg Chew, 81 MG PO DAILY, #30 TAB Prov:ROSETTA BALDWIN 01/05/18 Carvedilol* (Carvedilol*) 6.25 Mg Tablet, 6.25 MG PO BID, #120 TAB Prov:ROSETTA BALDWIN 01/05/18 Atorvastatin* (Atorvastatin*) 80 Mg Tablet, 80 MG PO DAILY, #60 TAB Prov:ROSETTA BALDWIN 01/05/18 Clopidogrel Bisulfate (Clopidogrel) 75 Mg Tablet, 75 MG PO DAILY, #60 TAB Further refills per your primary care provider (will need to be on for at least one year) Prov:ROSETTA BALDWIN 01/05/18 Discontinued Scripts Insulin Aspart* (Novolog Insulin Pen*) 100 Unit/Ml Soln, 7 UNIT SC WITH MEALS for 30 Days Prov:ROSETTA BALDWIN 01/05/18 [Insulin Glargine] 100 UNITS/ML SOLN No Conflict Check, 21 UNITS SC DAILY@2000 for 30 Days Prov:ROSETTA BALDWIN 01/05/18 Lisinopril* (Lisinopril*) 5 Mg Tablet, 5 MG PO DAILY, #60 TAB Prov:ROSETTA BALDWIN 01/05/18 Follow-up Plan Mendoza Phan MD Specialty: Internal Medicine Office Address: [address] [place] [address] [place] [address] Office Primary Care Provider Care Physician No Primary Time spent on discharge: > 30 minutes Pending Labs Laboratory Tests Test 06/26/18 11:49 06/26/18 17:13 06/26/18 20:23 06/27/18 05:31 Bedside 117 200 151 Glucose mg/dL (70-220) mg/dL (70-220) mg/dL (70-220) White Blood 6.8 Count 10^3/ul (4.8-1 0.8) Red Blood 5.19 Count 10^6/ul (4.70- 6.10) Hemoglobin 15.8 g/dl (14.0-18. 0) Hematocrit 46.6 % (42.0-52.0) Mean 89.8 Corpuscular fl (82.0-101.0 Volume ) Mean 30.4 Corpuscular pg (29.0-33.0) Hemoglobin Mean 33.9 Corpuscular g/dl (32.0-37. Hemoglobin Conc 0) ent Red Cell 12.8 Distribution % (11.5-14.5) Width Platelet Count 254 10^3/UL (140-4 15) Mean Platelet 11.3 Volume fl (7.4-10.4) Immature 0.600 Granulocytes % % (0.001-0.429 ) Neutrophils % 70.5 % (39.0-77.0) Lymphocytes % 18.7 % (15.0-51.0) Monocytes % 8.1 % (0.0-11.0) Eosinophils % 1.5 % (0.0-7.0) Basophils % 0.6 % (0.0-2.0) Nucleated Red 0.0 Blood Cells % /100WBC (0.0-0 .0) Immature 0.040 Granulocytes # 10^3/ul (0.0-0 .031) Neutrophils # 4.8 10^3/ul (1.6-7 .5) Lymphocytes # 1.3 10^3/ul (0.8-2 .9) Monocytes # 0.6 10^3/ul (0.3-0 .9) Eosinophils # 0.1 10^3/ul (0.0-0 .5) Basophils # 0.0 10^3/ul (0.0-0 .1) Nucleated Red 0.0 Blood Cells # 10^3/ul (0.0-0 .0) Sodium Level 139 mmol/L (135-14 4) Potassium 4.2 Level mmol/L (3.5-5. 1) Chloride Level 102 mmol/L (97-110 ) Carbon Dioxide 29 Level mmol/L (21-31) Anion Gap 8 (5-13) Blood Urea 14 Nitrogen mg/dl (7-20) Creatinine 0.84 mg/dl (0.61-1. 24) Est Glomerular > 60 Filtrat mL/min (>60) Rate mL/min Glucose Level 148 mg/dl (70-220) Calcium Level 9.5 mg/dl (8.4-10. 2) Phosphorus 4.3 Level mg/dl (2.5-4.9 ) Magnesium 2.1 Level mg/dl (1.7-2.5 ) Test 06/27/18 07:50 Bedside 139 Glucose mg/dL (70-220) MONTY HENAO NP Jun 27, 2018 11:21
[2018-06-27] MEDS: ACETAMINOPHEN 325 MG TAB PO PRN (11:56)
[2018-06-27 12:01] VITALS: BP 118/67; PULSE 71; RESP 20
[2018-06-27 12:19] VITALS: PULSE 64
--- NOTE | 2018-06-27 13:11 | NUR ---
Discharge summary Pt discharge home w/ no c/o pain, no sob or distress, troponin all negative. Pt amb w/ stable gait, no dizziness noted. Prescriptions given, instructed, pt verbalized understanding of the given instructions. Iv's removed, tele monitor removed. Pt discharge home stable
== END 2018-06-27 13:23 | disposition home or self-care (01) ==
LOC: E/R 22:34 → TEL 06-26 00:24
PROVIDERS: ADMIT Internal Medicine; ATTEND Internal Medicine
DX: I16.0 Hypertensive urgency (principal); R07.9 Chest pain, unspecified; R51 Headache; I25.10 Atherosclerotic heart disease of native coronary artery without angina pectoris; E11.9 Type 2 diabetes mellitus without complications; E78.5 Hyperlipidemia, unspecified; Z79.82 Long term (current) use of aspirin; Z79.4 Long term (current) use of insulin; Z95.5 Presence of coronary angioplasty implant and graft
CPT/HCPCS: 36415; 70450; 71045; 80048; 80053; 80061; 82550; 82553; 82962; 83036; 83735; 83880; 84100; 84484; 85025; 93005; 99285; G0378; J0360; J1650; J1815